=== PATIENT | male | born 1995 | race Caucasian/White ===

== ENCOUNTER 2021-03-18 14:48 | Emergency (ER) | payer OTHER ==
[~2021-03-18] VITALS: Ht 175.3 cm; Wt 113.4 kg
== END 2021-03-18 17:49 | disposition home or self-care (01) ==
LOC: FSED 15:44
DX: J01.90 Acute sinusitis, unspecified (principal); R51.9 Headache, unspecified
CPT/HCPCS: 70450; 99283